=== PATIENT | male | born 1990 ===

== ENCOUNTER 2017-05-08 17:58 | Emergency (ER) | payer SELFPAY ==
[2017-05-08 18:05] VITALS: RESP 16
--- NOTE | 2017-05-08 18:34 | EDPHY ---
H & P Stated Complaint: R flank pain radiating to R testicle since 1400- Time Seen by Provider: 05/08/17 18:33 HPI/ROS: CHIEF COMPLAINT: Acute right flank pain HISTORY OF PRESENT ILLNESS: The patient presents to the ED with acute right flank pain that began 4 hours prior to arrival. The patient reports associated nausea. He reports the pain radiates to his testicle. The patient denies prior history of the symptoms. The patient denies gross hematuria. The patient was seen at urgent care prior to arrival. He had an ultrasound of the abdomen and pelvis which demonstrated no hydronephrosis. His urinalysis did demonstrate microscopic hematuria according to the urgent care physician. The patient currently rates his pain as a 7/10. He denies any additional acute complaints. REVIEW OF SYSTEMS: A comprehensive 10 point review of systems is otherwise negative aside from elements mentioned in the history of present illness. Source: Patient Exam Limitations: No limitations - Personal History Current Tetanus/Diphtheria Vaccine: Unsure Current Tetanus Diphtheria and Acellular Pertussis (TDAP): Unsure - Medical/Surgical History Hx Asthma: No Hx Chronic Respiratory Disease: No Hx Diabetes: No Hx Cardiac Disease: No Hx Renal Disease: No Hx Cirrhosis: No Hx Alcoholism: No Hx HIV/AIDS: No Hx Splenectomy or Spleen Trauma: No Other PMH: denies - Social History Smoking Status: Never smoked - Physical Exam Exam: General Appearance: Alert, mild discomfort secondary to pain Eyes: Pupils equal and round no pallor or injection ENT, Mouth: Mucous membranes moist Respiratory: There are no retractions, lungs are clear to auscultation Cardiovascular: Regular rate and rhythm Gastrointestinal: Minimal tenderness to palpation right lower quadrant, right CVA tenderness is present : No significant testicular tenderness appreciated, no epididymal swelling or tenderness Neurological: A&O, normal motor function, normal sensory exam, normal cranial nerves Skin: Warm and dry, no rashes Musculoskeletal: Neck is supple nontender Extremities: symmetrical, full range of motion Constitutional: Initial Vital Signs Temperature (C) 36.6 C 05/08/17 18:02 Heart Rate 81 05/08/17 18:02 Respiratory Rate 16 05/08/17 18:02 Blood Pressure 136/60 H 05/08/17 18:02 O2 Sat (%) 94 05/08/17 18:02 O2 Delivery Mode Room Air Allergies/Adverse Reactions: amoxicillin Allergy (Verified 05/08/17 18:00) Home Medications: Medication Instructions Recorded Ondansetron Odt [Zofran Odt] 4 mg PO Q4PRN PRN #20 tab 05/08/17 Tamsulosin HCl [Flomax] 0.4 mg PO DAILY PRN #5 cap 05/08/17 oxyCODONE/APAP 5/325 [Percocet 1 - 2 tab PO Q6-8PRN PRN #20 tab 05/08/17 5/325 (RX)] Medical Decision Making - Diagnostics Imaging Results: Imaging Impressions Abdomen/Pelvis CT 05/08/17 18:53 Impression: There is a 2.7 mm distal right ureterolith, without significant upstream obstructive uropathy. Attention: This CT examination is specifically designed to evaluate patients who are clinically suspected of having acute obstructive uropathy. This examination does not use radiographic contrast, and as such, provides only a limited evaluation of the abdomen, pelvis, and retroperitoneum. If there is further clinical suspicion for pathological conditions other than obstructive uropathy, a complete CT evaluation of the abdomen and pelvis utilizing intravenous, oral, and rectal contrast should be considered. Findings were discussed with Maximo Means MD at 19:52, on 05/08/2017. ED Course/Re-evaluation: The patient was offered an IV and declined. The patient was given 600 mg of ibuprofen. Given the patient's complaints of acute ongoing pain and negative ultrasound a CT scan of the abdomen pelvis was ordered without contrast. CT scan does demonstrate a 2.7 mm distal right ureteral stone. There is no significant hydronephrosis. The patient did request IV pain medications. He had an IV established and received IV Toradol and oral Flomax. I re-evaluated the patient at 8:00 p.m.. The patient is feeling better. He has been informed of the diagnosis ureterolithiasis. Based upon the size it is at high likelihood for passing spontaneously. The patient had recurrence pain and received an additional dose of 15 mg of Toradol and 100 mcg of fentanyl. The patient received an IV lidocaine infusion at 9:45 p.m. 10:15 p.m.: Patient will be discharged home with a urinary strainer. He is given customary aftercare and return precautions. He is referred to the on- call urologist. The patient will be discharged home with a prescription for pain medications, antinausea medications, Flomax and a urinary strainer. He is referred to our on -call urologist. Differential Diagnosis: Differential diagnosis considered includes ureterolithiasis, nephrolithiasis, pyelonephritis, appendicitis, epididymitis - Data Points Laboratory Results: Laboratory Results 05/08/17 17:30 05/08/17 17:30 05/08/17 05/08/17 17:30 17:30 WBC 6.67 10^3/uL 10^3/uL (3.80-9.50) RBC 5.28 10^6/uL 10^6/uL (4.40-6.38) Hgb 17.4 g/dL g/dL (13.7-17.5) Hct 47.6 % % (40.0-51.0) MCV 90.2 fL fL (81.5-99.8) MCH 33.0 pg pg (27.9-34.1) MCHC 36.6 g/dL g/dL (32.4-36.7) RDW 11.8 % % (11.5-15.2) Plt Count 263 10^3/uL 10^3/uL (150-400) MPV 10.5 fL fL (8.7-11.7) Neut % (Auto) 64.1 % % (39.3-74.2) Lymph % (Auto) 26.7 % % (15.0-45.0) Larue % (Auto) 7.3 % % (4.5-13.0) Eos % (Auto) 1.0 % % (0.6-7.6) Baso % (Auto) 0.6 % % (0.3-1.7) Nucleat RBC Rel Count 0.0 % % (0.0-0.2) Absolute Neuts (auto) 4.27 10^3/uL 10^3/uL (1.70-6.50) Absolute Lymphs (auto) 1.78 10^3/uL 10^3/uL (1.00-3.00) Absolute Monos (auto) 0.49 10^3/uL 10^3/uL (0.30-0.80) Absolute Eos (auto) 0.07 10^3/uL 10^3/uL (0.03-0.40) Absolute Basos (auto) 0.04 10^3/uL 10^3/uL (0.02-0.10) Absolute Nucleated RBC 0.00 10^3/uL 10^3/uL (0-0.01) Immature Gran % 0.3 % % (0.0-1.1) Immature Gran # 0.02 10^3/uL 10^3/uL (0.00-0.10) Sodium 138 mEq/L mEq/L (134-144) Potassium 4.0 mEq/L mEq/L (3.5-5.2) Chloride 100 mEq/L mEq/L (97-110) Carbon Dioxide 25 mEq/l mEq/l (22-31) Anion Gap 13 mEq/L mEq/L (8-16) BUN 13 mg/dL mg/dL (7-23) Creatinine 1.1 mg/dL mg/dL (0.7-1.3) Estimated GFR > 60 Glucose 87 mg/dL mg/dL (70-100) Calcium 9.8 mg/dL mg/dL (8.5-10.4) Total Bilirubin 0.7 mg/dL mg/dL (0.1-1.4) AST 44 IU/L IU/L (17-59) ALT 85 IU/L H IU/L (21-72) Alkaline Phosphatase 96 IU/L IU/L (38-126) Total Protein 8.0 g/dL g/dL (6.3-8.2) Albumin 5.0 g/dL g/dL (3.5-5.0) Medications Given: Discontinued Medications Acetaminophen (Tylenol) 1,000 mg PO EDNOW ONE Stop: 05/08/17 20:40 Last Admin: 05/08/17 21:52 Dose: Not Given Fentanyl (Sublimaze) 75 mcg IVP EDNOW ONE Stop: 05/08/17 20:40 Last Admin: 05/08/17 21:03 Dose: 75 mcg Sodium Chloride (Ns) 1,000 mls @ 0 mls/hr IV ONCE ONE PRN Reason: Wide Open Stop: 05/08/17 19:36 Last Admin: 05/08/17 19:59 Dose: 1,000 mls Lidocaine HCl 200 mg/ Sodium (Chloride) 120 mls @ 600 mls/hr IV EDNOW ONE Stop: 05/08/17 20:50 Last Admin: 11/16/17 21:48 Dose: 120 mls Ibuprofen (Motrin) 600 mg PO EDNOW ONE Stop: 05/08/17 19:02 Last Admin: 05/08/17 19:23 Dose: 600 mg Ketorolac Tromethamine (Toradol) 15 mg IVP EDNOW ONE Stop: 05/08/17 19:36 Last Admin: 05/08/17 19:58 Dose: 15 mg Ketorolac Tromethamine (Toradol) 15 mg IVP EDNOW ONE Stop: 05/08/17 20:41 Last Admin: 05/08/17 21:33 Dose: 15 mg Ondansetron HCl (Zofran) 4 mg IVP EDNOW ONE Stop: 05/08/17 19:55 Last Admin: 05/08/17 20:00 Dose: 4 mg Tamsulosin HCl (Flomax) 0.4 mg PO EDNOW ONE Stop: 05/08/17 19:55 Last Admin: 05/08/17 20:06 Dose: 0.4 mg Departure - Departure Disposition: Home, Routine, Self-Care Clinical Impression: Renal colic on right side Condition: Good Instructions: Kidney Stones (ED) Additional Instructions: 1. Take Ibuprofen or Motrin 600 mg by mouth three times a day. 2. Percocet as needed for severe pain 3. Flomax as directed 4. Zofran as needed for nausea 5. Strain urine as directed 6. Return to the Emergency Department for intractable pain, fever or vomiting. 7. Followup with the urologist you have been referred to for unimproved symptoms. Referrals: Cinda Carrasquillo MD [Medical Doctor] - As per Instructions Prescriptions: Ondansetron Odt [Zofran Odt] 4 mg PO Q4PRN PRN #20 tab PRN Reason: For Nausea oxyCODONE/APAP 5/325 [Percocet 5/325 (RX)] 1 - 2 tab PO Q6-8PRN PRN #20 tab PRN Reason: for pain Tamsulosin HCl [Flomax] 0.4 mg PO DAILY PRN #5 cap PRN Reason: for pain
[2017-05-08 18:52] LABS: % IMMATURE GRANULYOCYTES 0.3 % (0.0-1.1); ABSOLUTE IMMATURE GRANULOCYTES 0.02 10^3/uL (0.00-0.10); ADD DIFF? NO; ADD MORPH? NO; ADD SCAN? NO; ATYPICAL LYMPHOCYTE FLAG 10 (0-99); FRAGMENT RBC FLAG 0 (0-99); HEMATOCRIT 47.6 % (40.0-51.0); HEMOGLOBIN 17.4 g/dL (13.7-17.5); LEFT SHIFT FLG 0 (0-99); LIPEMIA HEMOLYSIS FLAG 90 (0-99); MEAN CELL HEMOGLOBIN CONCENTR. 36.6 g/dL (32.4-36.7); MEAN CELL VOLUME 90.2 fL (81.5-99.8); MEAN PLATELET VOLUME 10.5 fL (8.7-11.7); PLATELET CLUMPS FLAG 0 (0-99); PLATELET COUNT 263 10^3/uL (150-400); RED BLOOD CELL COUNT 5.28 10^6/uL (4.40-6.38); RED CELL DISTRIBUTION WIDTH 11.8 % (11.5-15.2)
[2017-05-08] MEDS ORDERED: IBUPROFEN 600 MG TAB PO ONE (19:01)
[2017-05-08 19:05] LABS: ALANINE AMINOTRANSFERASE 85 IU/L (21-72); ALKALINE PHOSPHATASE 96 IU/L (38-126); ANION GAP 13 mEq/L (8-16); ASPARTATE AMINOTRANSFERASE 44 IU/L (17-59); BILIRUBIN,TOTAL 0.7 mg/dL (0.1-1.4); CALCIUM 9.8 mg/dL (8.5-10.4); CARBON DIOXIDE 25 mEq/l (22-31); CHLORIDE 100 mEq/L (97-110); CREATININE 1.1 mg/dL (0.7-1.3); GLOMERULAR FILTRATION RATE > 60; GLUCOSE 87 mg/dL (70-100); SODIUM 138 mEq/L (134-144)
[2017-05-08] MEDS ORDERED: KETOROLAC 15 MG/1 ML SDV IVP ONE ×2 (19:35→20:40)
[2017-05-08] MEDS ORDERED: NS 1,000 ML IV ONE (19:35)
[2017-05-08] MEDS ORDERED: ONDANSETRON 4 MG/2 ML VIAL ONE (19:50)
[2017-05-08] MEDS ORDERED: TAMSULOSIN HCL 0.4 MG CAP PO ONE (19:54)
[2017-05-08] MEDS ORDERED: ONDANSETRON 4 MG/2 ML VIAL IVP ONE (19:54)
[2017-05-08] MEDS ORDERED: LIDOCAINE 1% 200 MG in NS 100 ML IV ONE (20:39)
[2017-05-08] MEDS ORDERED: fentaNYL 100 MCG/2 ML INJ IVP ONE (20:39)
[2017-05-08] MEDS: ACETAMINOPHEN 500 MG TAB PO ONE ×2 (20:45→21:52)
[2017-05-08] MEDS ORDERED: OXYCODONE/APAP 5/325MG PREPACK#4 BTL TAKEHOME ONE (21:44)
[2017-05-08 22:43] VITALS: BP 134/72; PULSE 88; TEMP 98.2; O2SAT 97
== END 2017-05-08 22:41 | disposition home or self-care (01) ==
DX: N23 Unspecified renal colic (principal)
CPT/HCPCS: 96374; J1885; J2405; J3010

== ENCOUNTER → 2017-05-08 | Outpatient (CLI) | payer OTHER | LOC: BMCIMAGING 16:16 | PROVIDERS: ATTEND Emergency Medicine | DX: R10.31 Right lower quadrant pain (principal); R31.9 Hematuria, unspecified ==